=== PATIENT | male | born 2005 | race Caucasian/White ===

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

== ENCOUNTER 2025-06-07 13:31 | Emergency (ER) | payer SELFPAY | END 2025-06-07 13:54 | disposition home or self-care (01) | LOC: MADERS 13:31 | DX: B34.9 Viral infection, unspecified (principal); F17.290 Nicotine dependence, other tobacco product, uncomplicated | CPT/HCPCS: 99283 ==